=== PATIENT | female | born 1985 | race Caucasian/White ===

== ENCOUNTER 2022-08-09 16:22 | Emergency (ER) | payer OTHER ==
[~2022-08-09] VITALS: Ht 152.4 cm; Wt 68.0 kg
[2022-08-09 16:46] VITALS: BP 106/45
[2022-08-09] MEDS ORDERED: POLY10DR RIGHTEYE (21:00)
[2022-08-09] MEDS ORDERED: AMOX1TAB16 MT (21:01)
== END 2022-08-09 21:12 | disposition home or self-care (01) ==
LOC: ER 16:22
DX: H10.9 Unspecified conjunctivitis (principal); J32.9 Chronic sinusitis, unspecified
CPT/HCPCS: 99283

== ENCOUNTER 2023-03-04 02:58 | Emergency (ER) | payer OTHER ==
[~2023-03-04] VITALS: Ht 149.9 cm; Wt 57.6 kg
[~2023-03-04 02:58] MED LIST: AMOX1TAB16 MT; POLY10DR RIGHTEYE
[2023-03-04 03:29] LABS: BASOPHILS % 0.9 % (0.0-2.0); EOSINOPHILS % 2.1 % (0.0-5.0); HEMATOCRIT. 33.3 % (36.0-48.0); HEMOGLOBIN. 10.6 g/dL (12.0-16.0); LYMPHOCYTES % 28.5 % (20.0-50.0); MEAN CORPUSCULAR HGB CONC 31.9 g/dL (31.0-37.0); MEAN CORPUSCULAR VOLUME 68.9 fL (81.0-99.0); MEAN PLATELET VOLUME 6.8 fl (7.4-10.4); MONOCYTES % 5.4 % (2.0-8.0); NEUTROPHILS % 63.1 % (40.0-76.0); PLATELET 526 x1000/uL (130-400); RED BLOOD CELL COUNT 4.83 mill/uL (4.2-5.4); RED CELL DISTRIBUTION WIDTH 16.2 % (11.6-14.6); WHITE BLOOD COUNT 6.3 x1000/uL (4.5-11.0)
[2023-03-04 03:32] LABS: CLARITY URINE CLEAR (CLEAR); COLOR URINE YELLOW (YELLOW); GLUCOSE URINE NEGATIVE (NEGATIVE); KETONES URINE NEGATIVE (NEGATIVE); LEUKOCYTE ESTERASE URINE NEGATIVE (NEGATIVE); NITRITE URINE NEGATIVE (NEGATIVE); OCCULT BLOOD URINE 3+ (NEGATIVE); PH URINE 5.5 (4.5-8.0); PROTEIN URINE NEGATIVE (NEGATIVE); SPECIFIC GRAVITY URINE 1.021 (1.005-1.030)
[2023-03-04 03:35] LABS: BACTERIA URINE NONE SEEN; RBC URINE 50-100 /hpf (0-2); SQUAMOUS EPITHELIAL CELL URINE NONE SEEN /lpf (RARE/1+); WBC URINE NONE SEEN /hpf (0-2); YEAST URINE NONE SEEN
[2023-03-04 03:36] LABS: ADD RBC MORPHOLOGY YES; DIFFERENTIAL COMMENT 1
[2023-03-04 03:38] LABS: CHLORIDE 108 mEq/L (98-107); INDEX HEMOLYSI 1 (1-3); INDEX ICTERIC 1 (1-4); INDEX LIPEMIC 1 (1-3); POTASSIUM 3.8 mEq/L (3.5-5.1); SODIUM 138 mEq/L (136-145)
[2023-03-04 03:45] LABS: ALANINE AMINOTRANSFERASE 16 IU/L (13-61); ALBUMIN 3.3 g/dL (3.4-5.0); ASPARTATE AMINOTRANSFERASE 14 IU/L (15-37); BILIRUBIN TOTAL 0.3 mg/dL (0.1-1.0); CALCIUM 8.2 mg/dL (8.5-10.1); CARBON DIOXIDE 26 mEq/L (21-32); CREATININE 0.7 mg/dL (0.6-1.3); GLUCOSE 102 mg/dL (70-105); PROTEIN TOTAL 7.8 g/dL (6.0-8.3); UREA NITROGEN BLOOD 11 mg/dL (7-21)
[2023-03-04 04:13] LABS: HYPOCHROMASIA 1+; MICROCYTOSIS 1+; PLATELET ESTIMATE INCREASED
[2023-03-04] MEDS ORDERED: KETOROLAC 30MG/ML VIAL IV ONE (07:00)
[2023-03-04] MEDS ORDERED: CEFTRIAXONE 1GM PREMIX 50 ML IV ONE (07:00)
[2023-03-04 07:38] VITALS: BP 123/63; PULSE 64; RESP 14
[2023-03-04 10:28] VITALS: TEMP 98
[2023-03-04] MEDS ORDERED: TOPUD PO (12:30)
== END 2023-03-04 13:01 | disposition home or self-care (01) ==
LOC: ER 02:58
DX: K80.50 Calculus of bile duct without cholangitis or cholecystitis without obstruction (principal)
CPT/HCPCS: 80053; 81003; 81025; 83690; 85025; 36415; 76705; 96365; 96366; 96375; 99285; J0696; J1885; Z7610 ×2